=== PATIENT | female | born 2000 | race Caucasian/White ===

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

== ENCOUNTER 2019-06-02 17:32 | Emergency (ER) | payer MEDICAID, OTHER ==
[2019-06-02 17:38] VITALS: BP 148/82
--- NOTE | 2019-06-02 17:52 | ER Document Report ---
ED Medical Screen (RME) - General Chief Complaint: Fever Stated Complaint: FEVER,HEADACHE,COUGH Time Seen by Provider: 06/02/19 17:49 Primary Care Provider: FABIAN RAPHAEL NP [Primary Care Provider] - Follow up as needed Mode of Arrival: Ambulatory Information source: Patient Notes: 19-year-old female presented to ED for cough cold congestion fevers up to 101 for the last 2 days. She states she did not get her flu immunization this year. She also has a sore throat. Patient is alert oriented respirations regular nonlabored speaking in full sentences. Menstrual period started yesterday. He denies smoking drinking or use of any drugs. I have greeted and performed a rapid initial assessment of this patient. A comprehensive ED assessment and evaluation of the patient, analysis of test results and completion of medical decision making process will be conducted by an additional ED providers. TRAVEL OUTSIDE OF THE [place] IN LAST 30 DAYS: No - Related Data Allergies/Adverse Reactions: No Known Allergies Allergy (Verified 06/02/19 17:45) Past Medical History - Social History Chew tobacco use (# tins/day): No Frequency of alcohol use: None Drug Abuse: None Renal/ Medical History: Denies: Hx Peritoneal Dialysis - Immunizations Immunizations up to date: Yes Physical Exam - Vital signs Vitals: Temp Pulse Resp BP Pulse Ox 99.2 F 107 H 18 148/82 H 100 06/02/19 17:37 06/02/19 17:37 06/02/19 17:37 06/02/19 17:37 06/02/19 17:37 Course - Vital Signs Vital signs: Temp Pulse Resp BP Pulse Ox 99.2 F 107 H 18 148/82 H 100 06/02/19 17:37 06/02/19 17:37 06/02/19 17:37 06/02/19 17:37 06/02/19 17:37 Doctor's Discharge - Discharge Referrals: FABIAN RAPHAEL NP [Primary Care Provider] - Follow up as needed
[2019-06-02 18:29] LABS: APPEARANCE,URINE CLEAR; BILIRUBIN,URINE NEGATIVE (NEGATIVE); COLOR,URINE YELLOW; GLUCOSE, URINE NEGATIVE (NEGATIVE); KETONES,URINE 80 mg/dL (NEGATIVE); LEUKOCYTE ESTERASE,URINE NEGATIVE (NEGATIVE); NITRITE,URINE NEGATIVE (NEGATIVE); PROTEIN,URINE NEGATIVE (NEGATIVE); URINE SPECIFIC GRAVITY 1.015; UROBILINOGEN,URINE NEGATIVE mg/dL (<2.0)
[2019-06-02 18:46] LABS: A TYPE INFLUENZA AG NEGATIVE (NEGATIVE); B INFLUENZA AG NEGATIVE (NEGATIVE)
[2019-06-02] MEDS ORDERED: ACETAMINOPHEN 325 MG TABLET PO ONE (19:38)
--- NOTE | 2019-06-02 19:43 | ER Document Report ---
ED General - General Chief Complaint: Fever Stated Complaint: FEVER,HEADACHE,COUGH Time Seen by Provider: 06/02/19 17:49 Primary Care Provider: FABIAN RAPHAEL EGG BREAKER [NURSE PRACTITIONER] - Follow up as needed Mode of Arrival: Ambulatory Notes: 19-year-old female presents with nonproductive cough, subjective fever, right ear pain, and nausea for 4 days. Pt states she has taken Pao [place] with relief for first 2 days. Denies vomiting, abdominal pain, body aches, chest pain, dyspnea, or diarrhea/constipation. TRAVEL OUTSIDE OF THE [place] IN LAST 30 DAYS: No - Related Data Allergies/Adverse Reactions: No Known Allergies Allergy (Verified 06/02/19 17:45) Past Medical History - General Information source: Patient - Social History Smoking Status: Never Smoker Chew tobacco use (# tins/day): No Frequency of alcohol use: None Drug Abuse: None Family History: Reviewed & Not Pertinent Patient has suicidal ideation: No Patient has homicidal ideation: No Renal/ Medical History: Denies: Hx Peritoneal Dialysis - Immunizations Immunizations up to date: Yes Review of Systems - Review of Systems Notes: Constitutional: Positive for subjective fever. HENT: Positive for ear pain. Negative for sore throat. Eyes: Negative for visual changes. Cardiovascular: Negative for chest pain. Respiratory: Negative for shortness of breath. Gastrointestinal: Negative for abdominal pain, vomiting or diarrhea. Genitourinary: Negative for dysuria. Musculoskeletal: Negative for back pain. Skin: Negative for rash. Neurological: Positive for headache. negative for weakness or numbness. 10 point ROS negative except as marked above and in HPI. Physical Exam - Vital signs Vitals: Temp Pulse Resp BP Pulse Ox 99.2 F 107 H 18 148/82 H 100 06/02/19 17:37 06/02/19 17:37 06/02/19 17:37 06/02/19 17:37 06/02/19 17:37 - Notes Notes: GENERAL: Well-appearing, well-nourished and in no acute distress. HEAD: Atraumatic, normocephalic. EYES: Extraocular movements intact, sclera anicteric, conjunctiva are normal. ENT: TMs normal, nares patent, oropharynx clear without exudates. Uvula midline. No muffled voice. Moist mucous membranes. No trismus. NECK: Normal range of motion, supple without lymphadenopathy or JVD. LUNGS: Breath sounds clear to auscultation bilaterally and equal. No wheezes rales or rhonchi. Coughing HEART: Regular rate and rhythm without murmurs, rubs or gallops. ABDOMEN: Soft, nontender. No guarding, no rebound. No masses appreciated. EXTREMITIES: Normal range of motion, no pitting or edema. No clubbing or cyanosis. NEUROLOGICAL: Cranial nerves II through XII grossly intact. Normal speech, normal gait. PSYCH: Normal mood, normal affect. SKIN: Warm, Dry, normal turgor, no rashes or lesions noted. Course - Re-evaluation Re-evalutation: 06/02/19 Presentation is most consistent with a viral upper respiratory infection. Patient is overall well appearance, vitals within normal limits, well-hydrated. Patient denies any headache, neck pain, and has no evidence of meningismus on examination. Lungs are clear bilaterally. No evidence of respiratory distress. Based on clinical exam and history, I do not suspect an acute pneumonia, meningitis, strep pharyngitis, or an acute encephalitis. Rapid flu negative and negative rapid strep. UA unremarkable. No further laboratory or imaging testing is indicated at this time. Will discharge patient with return precautions and followup recommendations. They are in agreement this plan have verbalized understanding return precautions. - Vital Signs Vital signs: Temp Pulse Resp BP Pulse Ox 99.2 F 107 H 18 148/82 H 100 06/02/19 17:37 06/02/19 17:37 06/02/19 17:37 06/02/19 17:37 06/02/19 17:37 - Laboratory Laboratory results interpreted by me: 06/02/19 18:00 Urine Ketones 80 H Urine Blood LARGE H Discharge - Discharge Clinical Impression: Acute URI Condition: Stable Disposition: HOME, SELF-CARE Instructions: Acetaminophen, Fever ([facility]), Upper Respiratory Illness ([facility]) Additional Instructions: Maintain adequate fluid intake tylenol/ibuprofen as needed alternating every 3 hours for fever/body ache over the counter cold medication as needed for symptoms Humidified air may help Wash your hands regularly Wear a mask when coughing F/u: with your PCM in 2-3 days for a recheck Return to the ED with any fever, altered mental status/behavior, chest pain, palpitations, syncope, headache, neck pain/stiffness, shortness of breath, chest pains, wheezing, drooling, trouble swallowing/breathing, abdominal pain, n/v/d, rash, or worsening/concerning symptoms otherwise. Prescriptions: Benzonatate [Tessalon Perles 100 mg Capsule] 100 mg PO Q8HP PRN #40 capsule PRN Reason: Fexofenadine/Pseudoephedrine [[place]-D 12 Hour Tablet] 1 each PO BID #20 tab.sr.12h Fluticasone Propionate [Flonase Nasal [place] 50 Mcg/[place] 16 gm] 2 sprays NASL Q12 #1 inhaler Referrals: FABIAN RAPHAEL, EGG BREAKER [NURSE PRACTITIONER] - Follow up as needed
--- NOTE | 2019-06-02 22:22 | RADIOLOGY REPORT (SQ) ---
XR CHEST 2 VIEWS EXAM DATE: 06/02/2019 5:52 PM TOLL TEST WORKER HISTORY: Chest pain. COMPARISON: 10/23/2016 FINDINGS: The heart size is within normal limits. No consolidation, pleural effusion, or pneumothorax is seen. No acute bony findings. IMPRESSION: No acute cardiopulmonary disease.
== END 2019-06-02 20:13 | disposition home or self-care (01) ==
LOC: ER 17:32
DX: J06.9 Acute upper respiratory infection, unspecified (principal); R50.9 Fever, unspecified; R51 Headache; R05 Cough; H92.01 Otalgia, right ear; R11.0 Nausea
CPT/HCPCS: 71046; 81001; 87070; 87804; 87880; 99283

== ENCOUNTER 2020-02-06 22:09 | Emergency (ER) | payer SELFPAY ==
--- NOTE | 2020-02-06 23:05 | RADIOLOGY REPORT (SQ) ---
EXAM DESCRIPTION: X-ray, three views of the left hand CLINICAL HISTORY: 19 years Female, injury COMPARISON: None. FINDINGS: A well-corticated cyst is present in the scaphoid. Bone mineralization is normal. The fifth finger is held out words throughout the exam however there is no fracture seen in the hand. Diffuse soft tissue swelling is noted in the hand. IMPRESSION: No fracture. Soft tissue swelling.
--- NOTE | 2020-02-06 23:10 | ER Document Report ---
HPI - HPI Patient complains to provider of: Left hand contusion Time Seen by Provider: 02/06/20 22:23 Pain Level: 2 Context: 19-year-old female with no previous medical problems presents to the emergency room complaining of left hand pain and swelling for the past 6 days. States she was pumping gas when she got her hand caught between the gas pump and her car door when she went to shot it. Has been taking ibuprofen but not consistently with some relief. No history of previous trauma or injury to her hand. Patient is right-handed. Associated Symptoms: None Exacerbated by: Movement Relieved by: Remaining still Similar symptoms previously: No Recently seen / treated by doctor: No - ROS Systems Reviewed and Negative: Yes All other systems reviewed and negative - NEURO Neurology: DENIES: Weakness - RESPIRATORY Respiratory: DENIES: Trouble Breathing - REPRODUCTIVE Reproductive: DENIES: : - MUSCULOSKELETAL Musculoskeletal: REPORTS: Extremity pain - DERM Skin Color: Normal Skin Problems: None Past Medical History - General Information source: Patient - Social History Smoking Status: Never Smoker Chew tobacco use (# tins/day): No Frequency of alcohol use: None Drug Abuse: None Family History: Reviewed & Not Pertinent Patient has homicidal ideation: No Renal/ Medical History: Denies: Hx Peritoneal Dialysis - Immunizations Immunizations up to date: Yes Vertical Provider Document - CONSTITUTIONAL Agree With Documented VS: Yes Exam Limitations: No Limitations General Appearance: Mild Distress - INFECTION CONTROL TRAVEL OUTSIDE OF THE [place] IN LAST 30 DAYS: No - HEENT HEENT: Atraumatic, Normocephalic - NECK Neck: Normal Inspection, Supple - RESPIRATORY Respiratory: Breath Sounds Normal, No Respiratory Distress - CARDIOVASCULAR Cardiovascular: Regular Rate, Regular Rhythm, No Murmur - MUSCULOSKELETAL/EXTREMETIES Musculoskeletal/Extremeties: FROM, Tender - There is tenderness on palpation to the base of the left thumb. Painful range of motion with flexion and extension of the fingers to her left hand. There is no obvious deformity noted. Small ganglion cyst that is palpated to the dorsal aspect of the left hand. - NEURO Level of Consciousness: Awake, Alert, Appropriate Motor/Sensory: No Motor Deficit, No Sensory Deficit Notes: Positive left radial pulse. Capillary refill less than 3 seconds. - DERM Integumentary: Warm, Dry, No Rash Course - Re-evaluation Re-evalutation: 02/06/20 23:26 Patient is resting comfortably no acute distress at this time. She is able to fully flex and extend her fingers without difficulty. Reviewed x-ray results with patient and family. Counseled on the need to continue with either Tylenol or Motrin for pain ice elevate her left hand. Outpatient follow-up with orthopedics. On-call physician was provided. Discussed the incidental findings of the cyst which is most consistent with a ganglion that was noted on her x- ray. Can also follow-up with orthopedics for that. Patient was given strict return to the emergency room guidelines. Return for any new or worsening symptoms. All questions were answered. Patient verbalized understanding and agrees with plan of care. - Vital Signs Vital signs: Temp Pulse Resp BP Pulse Ox 98.8 F 78 16 148/81 H 99 02/06/20 22:21 02/06/20 22:21 02/06/20 22:21 02/06/20 22:21 02/06/20 22:21 - Diagnostic Test Radiology reviewed: Reports reviewed Discharge - Discharge Clinical Impression: Ganglion cyst Contusion of left hand Qualifiers: Encounter type: initial encounter Qualified Code(s): S60.222A - Contusion of left hand, initial encounter Condition: Stable Disposition: HOME, SELF-CARE Instructions: Contusion ([facility]), Ganglion Cyst ([facility]) Additional Instructions: Rest, ice, elevate her left hand as much as possible. Tylenol and or Motrin as needed for pain. Outpatient follow-up with orthopedics as discussed. Return to the emergency room for any new or worsening symptoms. Referrals: PAULINA PAGE PA-C [Primary Care Provider] - Follow up as needed CHAVA COPPOLA JR, DO [ACTIVE PROVISIONAL STAFF] - Follow up as needed
[2020-02-06 23:44] VITALS: BP 133/73
== END 2020-02-07 00:07 | disposition home or self-care (01) ==
LOC: ER 22:09
DX: M67.442 Ganglion, left hand (principal)
CPT/HCPCS: 99283